=== PATIENT | female | born 1940 | race Caucasian/White ===

== ENCOUNTER 2016-06-05 08:45 | Day surgery (SDC) | payer MEDICARE, BC ==
[~2016-06-05 08:45] MED LIST: RINGERS SOLUTION,LACTATED 1,000 ML IV PRN
--- OUTSIDE RECORDS SUMMARY | 2016-06-05 08:49 | XMS REPORT | Continuity of Care Document ---
:1940 Author Organization [facility] ([facility]) Address [place] [address] Phone [phone] Care Team Providers Name Role Phone Amy Dahl Primary Care Provider [phone] Source Comments This disclosure is being made pursuant to the Care Everywhere program, applicable federal and state laws, and may not contain all informaitonavailable regarding this patient.[facility] ([facility]) Active Allergies and Adverse Reactions Allergen Noted Date Severity Reactions Comments Benzonatate 01/26/2011 Unknown Diclofenac 10/17/2015 Unknown Current Medications Prescription Sig. Disp. Refills Start Date End Date Status enalapril 10 mg tablet Take 5 mg by mouth Active daily. levothyroxine 25 mcg Take 12.5 mcg by Active tablet mouth every morning before breakfast. alendronate 70 mg tablet take 1 tablet 04/05/2012 Active (70MG) by oral route every week in the morning, at least 30 min before first food, beverage, or medication of day fluticasone 50 spray 1 spray by 05/31/2014 Active mcg/Actuation nasal spray intranasal route every day in each nostril glucosamine-chondroitin take 2 tablets 01/17/2009 Active complex 500-400 mg per daily capsule carvedilol 25 mg tablet Take 25 mg by mouth 1 03/26/2015 Active 2 times daily. omeprazole 20 mg enteric Take 20 mg by mouth 0 02/25/2015 Active coated capsule daily. albuterol 90 Use 2 Puffs by Active mcg/Actuation inhaler inhalation every 6 hours as needed. fluticasone-vilanterol Use 1 Puff by Active (BREO ELLIPTA) 100-25 inhalation daily. mcg/dose inhaler multivitamin tablet Take 1 tablet by Active mouth daily. magnesium oxide 250 mg Take 250 mg by Active tablet mouth daily. folic acid 400 mcg tablet Take 0.8 mg by Active mouth daily. aspirin 81 mg EC tablet Take 1 tablet (81 11 10/17/2015 Active mg total) by mouth daily. ferrous sulfate PO Active cholecalciferol (VITAMIN Take 1,000 Units by Active D3) 1,000 unit capsule mouth daily. cyanocobalamin (VITAMIN Take 500 mcg by Active B-12) 500 mcg tablet mouth daily. Active Problems Problem Noted Date Subconjunctival bleed 01/28/2011 Contusion of periorbital region, right 01/28/2011 Hypertension Dilated idiopathic cardiomyopathy Overview: Formatting of this note may be different from the original. 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 Deutsch. Normal coronary angiography. Normal LV function.) - 11/19/2003 ECHO/MUGA: Echo (LV is normal size and normal systolic function. There are no significant valvular lesions.) - 11/18/2007 Echo (EF.50, LVE is mild. LVEF mildly reduced at 40%-50%. No significant valve lesions.) - 04/05/2007 Echo (Left ventricular systolic function is normal. No significant valve disease. ) - 01/17/2009 STRESS TESTS: Pers MPI (No reversible ischemia. LVEF is 45%.) - 02/23/2007 MPI (EF 0.64, No evidence of ischemia or infarct) - 04/26/2012 Hypercholesterolemia Most Recent Encounters Date Type Specialty Providers Description 04/21/2016 Office Visit Heart and Vascular Mary Jacob MD Dx: Dilated idiopathic cardiomyopathy (Primary Dx) Immunizations Name Dates Previously Given Next Due Tdap 01/26/2011 Social History Tobacco Use Types Packs/Day Years Used Date Never Smoker Alcohol Use Drinks/Week oz/Week Comments No Last Filed Vital Signs Vital Sign Reading Time Taken Blood Pressure 112/60 04/21/2016 12:44 PM LOGISTICAL ENGINEER Pulse 64 04/21/2016 12:44 PM LOGISTICAL ENGINEER Temperature 35.7 C (96.3 F) 01/28/2011 2:30 PM LOGISTICAL ENGINEER Respiratory Rate 18 01/28/2011 2:30 PM LOGISTICAL ENGINEER Height 1.6 m (5' 3") 04/21/2016 12:44 PM LOGISTICAL ENGINEER Weight 73.483 kg (162 lb) 04/21/2016 12:44 PM LOGISTICAL ENGINEER Body Mass Index 28.7 04/21/2016 12:44 PM LOGISTICAL ENGINEER Oxygen Saturation 98% 01/28/2011 2:30 PM LOGISTICAL ENGINEER Plan of Care Date Type Specialty Providers Description 04/29/2017 Appointment Heart and Vascular CecilMary MD Chief Comp: Patient [address] [place] [address] Visit [phone] (Fax) Health Maintenance Due Date Last Done Comments Hepatitis B Vaccine (1 of 3 - Primary Series) 1940 Lipid Disorder Screening 1956 Mammogram 1978 Colonoscopy 03/27/1988 Zoster Vaccine 1998 Osteoporosis Screening (DXA Bone Density) 2003 Pneumococcal Vaccine (1 of 2 - PCV13) 2003 Influenza Vaccine: Seasonal (#1) 09/30/2015 Td Vaccine 01/26/2021 01/26/2011 Tdap Vaccine Completed 01/26/2011 Results from Last 3 Months Not on file
[2016-06-05] MEDS ORDERED: BUPIVACAINE HCL/EPINEPHRINE 50 ML VIAL IJ ONE (11:35)
[2016-06-05] MEDS ORDERED: ACETAMINOPHEN 500 MG TABLET PO PRN (12:17)
--- NOTE | 2016-06-05 13:16 | OR ---
Operative Report - Dictated Report Narrative: Operative report: 06/05/16 Preoperative diagnosis: postmenopausal bleeding, thickened endometrial stripe Postoperative diagnosis: Same Procedure: Hysteroscopy, D&C Surgeon: Heather Berrios D.O. Microfabrication Engineer Manager: OR staff Anesthesia: Local and sedation IV fluids: 300 Milliliters EBL: min Milliliters Urine output: Not applicable Findings: thickened lining, frondy tissue projections into the uterine cavity with areas of small white flecks, and an area of pink fluffy vascular thickened tissue Drains: None Pathology: Endometrial curettings Complications: None Condition: Stable The patient was taken to the operating room. Anesthesia was found to be adequate. The patient was prepped and draped in the normal sterile fashion in the dorsal lithotomy position. A sterile speculum was then inserted into the vagina. The anterior lip of the cervix was then grasped with a single-tooth tenaculum. Local anesthetic was then injected in the cervix. The hysteroscope was then inserted into the cervix. Hydrodistention was then used to enter into the uterine cavity. The cavity was then surveyed and findings were as above. The hysteroscope was then removed. The cervix was then sequentially dilated. A sharp curettage was then performed until the cry of the uterus was noted. Minimal bleeding was then noted from the cervix. Hysteroscopy was then performed and adequate curettage was noted throughout the entire cavity although difficult to see due to copious amounts of fluffy tissue. The hysteroscope was then removed. The tenaculum was then removed. Hemostasis was noted. The speculum was then removed. All sponge lap and needle counts were correct 2. The patient was taken to the recovery room in stable condition.
[2016-06-05 13:32] VITALS: BP 156/75
== END 2016-06-05 08:46 | disposition home or self-care (01) ==
LOC: AMB 08:45
PROVIDERS: ATTEND Obstetrics & Gynecology Gynecologic Oncology
PROC: 0UDB8ZX Extraction of Endometrium, Via Natural or Artificial Opening Endoscopic, Diagnostic (ICD-10-PCS; principal; 2016-06-05 10:00)
DX: C54.1 Malignant neoplasm of endometrium (principal); I10 Essential (primary) hypertension; E78.5 Hyperlipidemia, unspecified; J45.909 Unspecified asthma, uncomplicated; F41.9 Anxiety disorder, unspecified; Z68.28 Body mass index [BMI] 28.0-28.9, adult

== ENCOUNTER 2016-06-10 02:43 | Emergency (ER) | payer MEDICARE, BC ==
--- OUTSIDE RECORDS SUMMARY | 2016-06-10 02:58 | XMS REPORT | Continuity of Care Document ---
:1940 Author Organization [facility] ([facility]) Address [place] [address] Phone [phone] Care Team Providers Name Role Phone Amy Dahl Primary Care Provider [phone] Source Comments This disclosure is being made pursuant to the Care Everywhere program, applicable federal and state laws, and may not contain all informaitonavailable regarding this patient.[facility] ([facility]) Active Allergies and Adverse Reactions Allergen Noted [...] be different from the original. 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 Deutsch. Normal coronary angiography. [...] Taken Blood Pressure 112/60 04/21/2016 12:44 PM STEAM BOX HAND Pulse 64 04/21/2016 12:44 PM STEAM BOX HAND Temperature 35.7 C (96.3 F) 01/28/2011 2:30 PM STEAM BOX HAND Respiratory Rate 18 01/28/2011 2:30 PM STEAM BOX HAND Height 1.6 m (5' 3") 04/21/2016 12:44 PM STEAM BOX HAND Weight 73.483 kg (162 lb) 04/21/2016 12:44 PM STEAM BOX HAND Body Mass Index 28.7 04/21/2016 12:44 PM STEAM BOX HAND Oxygen Saturation 98% 01/28/2011 2:30 PM STEAM BOX HAND Plan of Care Date Type Specialty Providers Description 04/29/2017 Appointment Heart and Vascular CecilMary MD Chief Comp: Patient [address] [place] [address] Visit [phone] (Fax) Health Maintenance Due Date Last Done [...]
--- NOTE | 2016-06-10 03:26 | ERNOTE ---
Medical Problem HPI - General Chief Complaint: Screening, Blood Pressure Time Seen by Provider: 06/10/16 03:04 Source: patient Exam Limitations: no limitations - Immun/Allergies/Home Medications Immunizations: IMMUNIZATION HX Immunizations Up to Date Yes History of Influenza Vaccine Yes Hx Pneumococcal Vaccination Yes Allergies/Adverse Reactions: Allergies benzonatate [From Tessalon] Adverse Reaction (Mild, Verified 06/05/16 09:36) GI UPSET diclofenac Adverse Reaction (Mild, Verified 06/05/16 09:36) GI UPSET ibuprofen [From Motrin] Adverse Reaction (Mild, Verified 06/05/16 09:36) GI UPSET Home Medications: HOME MEDICATIONS Albuterol Sulfate 2.5 mg IH QID 03/11/15 [Last Taken Unknown] Alendronate Sodium [Fosamax] 70 mg PO Q7D 03/11/15 [Last Taken Unknown] Carvedilol [Coreg] 25 mg PO BID 03/11/15 [Last Taken Unknown] Enalapril Maleate [Vasotec] 10 mg PO BID 03/11/15 [Last Taken 06/05/16] Levothyroxine Sodium [Synthroid] 12.5 mcg PO DAILY 03/11/15 [Last Taken Unknown] Omeprazole [Prilosec] 40 mg PO DAILY 03/11/15 [Last Taken Unknown] Sod Chlor,Bicarb/Squeez Bottle [Neilmed Sinus Rinse Comp Kit] 1 each NS DAILY [Last Taken Unknown] Acetaminophen [Tylenol] 650 mg PO HS 06/05/16 [Last Taken Unknown] Calcium Citrate 500 mg PO DAILY 06/05/16 [Last Taken Unknown] Cholecalciferol (Vitamin D3) [Vitamin D3] 1,000 unit PO DAILY 06/05/16 [Last Taken Unknown] Cyanocobalamin/Folic Acid [Foltrate Tablet] 1 each PO DAILY 06/05/16 [Last Taken Unknown] Ferrous Sulfate [Iron] 325 mg PO DAILY 06/05/16 [Last Taken Unknown] Fluticasone/Vilanterol [Breo Ellipta 200-25 Mcg INH] 1 each IH DAILY 06/05/16 [ Last Taken Unknown] Folic Acid 0.8 mg PO DAILY 06/05/16 [Last Taken Unknown] Gluc Alegre/MSM/Magnesium/Vit C [Glucosamine Complex-MSM Cap] 1 each PO BID [Last Taken Unknown] Loratadine [Claritin] 10 mg PO DAILY 06/05/16 [Last Taken Unknown] Magnesium 250 mg PO DAILY 06/05/16 [Last Taken Unknown] Multivitamins [Multivitamin Paige] 1 cap PO DAILY 06/05/16 [Last Taken Unknown] Naproxen [Naprosyn] 250 mg PO BID 06/05/16 [Last Taken Unknown] - History of Present History Narrative: Pt states she has been feeling tingly all over. She states she can usually tell when her blood pressure is elevated. She found out that she has uterine cancer yesterday. She has not told any of her family about this. Recently had her enalapril increased from 10mg daily to 10mg BID. Timing: constant Severity: moderate Review of Systems - Review of Systems Constitutional: Absent: recent illness, weakness, fatigue EYE: Present: no symptoms reported ENT: Present: no symptoms reported Respiratory: Present: shortness of breath - on occasion due to her asthma but nothing unusual Cardiology: Absent: chest pain Gastrointestinal/Abdominal: Absent: nausea, vomiting Genitourinary: Present: no symptoms reported Musculoskeletal: Present: back pain - that is chronic Skin: Absent: rash, lesions Neurological: Present: no symptoms reported Endocrine: Present: no symptoms reported Hematologic/Lymphatic: Present: no symptoms reported Psych: Present: no symptoms reported - Patient's Past Medical History Patient History - Medical: Arthritis, GERD, Hypothyroidism Patient History - Cardiac/Respiratory: Asthma, Cardiomyopathy, Hypertension Patient History - Cancer: Other - uterine Patient History - Surgical Procedures: Appendectomy, Cataracts, Colon Resection , Colonoscopy, Total Knee Replacement, T & A, Other, Urology Patient History - Other: None - Family History Mother Family History - Medical: , Alzheimer's Disease, Osteoarthritis Family History - Cardiac/Respiratory: Hypertension Family History - Cancer: Melanoma Father Family History - Medical: , No pertinent hx, Other Family History - Cardiac/Respiratory: Hypertension Family History - Cancer: Myeloma, Other - Social History Living Situations: alone Abuse History: No History of abuse Psych History: No pertinent hx Smoking Status: Never smoker Alcohol Use: none Drug Use: none - Immunizations Immunizations Up to Date: Yes Hx Pneumococcal Vaccination: Yes History of Influenza Vaccine: Yes Physical Exam - Physical Exam General Appearance: Present: wd/wn, alert, no apparent distress Eye Exam: Normal inspection: bilateral, PERRL: bilateral, EOMI: bilateral Ears, Nose, Throat: Present: normal ENT inspection Neck: Present: normal inspection, nontender Respiratory: Present: no respiratory distress, normal breath sounds, no accessory muscle use, lungs clear Cardiovascular/Chest: Present: regular rate, rhythm, no murmur, normal peripheral pulses Gastrointestinal/Abdominal: Present: normal bowel sounds, nontender, nondistended, soft Back Exam: Present: normal inspection, normal range of motion Extremity Exam: Present: normal inspection Neurological Exam: Present: alert, oriented, normal mood/affect Skin Exam: Present: normal color, warm/dry ED Progress - Results and Orders Patient's Lab Results:: I have reviewed the patient's lab results. Results and Orders: Laboratory Tests 06/10/16 06/10/16 03:45 03:45 WBC 6.1 Hgb 13.2 Hct 40.0 Plt Count 209 Sodium 140 Potassium 3.6 Chloride 104 Carbon Dioxide 27.0 Anion Gap 12.6 BUN 22 D Creatinine 0.78 Est GFR (Non-Af Amer) 76 Random Glucose 94 Calcium 8.9 Total Bilirubin 0.5 AST 22 ALT 22 Alkaline Phosphatase 51 Troponin I Less than 0.017 Total Protein 7.6 Albumin 3.8 - Vital Signs Patient's Vital Signs:: I have reviewed the patient's vital signs. Vital Signs: Vital Signs 06/10/16 02:50 Temperature 36.5 C Pulse Rate 70 Respiratory 14 Rate Blood Pressure 193/115 O2 Sat by Pulse 99 Oximetry - EKG EKG: LVH, unchanged from - 03/11/15, other - left anterior facicular block. Probable old ND. EKG read: Interp. by me - Progress/Reassessment Chief Complaint: Screening, Blood Pressure Progress:: Improved Progress Note-Subjective: 06/10/16 03:57 blood pressure down to 167/92 without treatment Departure - Departure Clinical Impression: Hypertension Qualifiers: Hypertension type: essential hypertension Qualified Code(s): I10 - Essential ( primary) hypertension Condition: Good Instructions: Hypertension, [id number] Additional Instructions: continue to take your medicines as prescribed. See your regular doctor if not continuing to improve
[2016-06-10 03:49] LABS: Hemoglobin 13.2 gm/dL (12.5-16.0); Mean Cell Volume 91.7 fl (78-100); Mean Corpuscular Hemoglobin 30.3 pg (27-31); Mean Platelet Volume 10.3 fl (6.0-9.5); Neutrophil # 2.4 K/mm3 (1.3-6.0); Neutrophil % 38.6 % (42-75.0); Platelet Count 209 K/mm3 (150-450); Red Blood Count 4.36 M/mm3 (4.2-5.4); Red Cell Distribution Width 12.2 % (11.5-14.0); White Blood Count 6.1 K/mm3 (4.0-10.5)
[2016-06-10 04:04] LABS: ALT 22 U/L (19-67); AST 22 U/L (0-48); Albumin * 3.8 gm/dl (3.4-5.0); Alkaline Phosphatase * 51 U/L (50-170); Anion Gap 12.6 mmol/L (6.8-13.8); BUN/Creatinine Ratio 28.2 (9.0-21.6); Bilirubin, Total 0.5 mg/dL (0.0-1.1); Blood Urea Nitrogen 22 mg/dL (3-23); Ca. Corrected For Albumin 8.7 mg/dL (8.4-10.2); Calcium * 8.9 mg/dL (7.9-10.9); Chloride 104 mmol/L (97-106); Glucose * 94 mg/dL (70-110); Potassium 3.6 mmol/L (3.4-4.6); Sodium 140 mmol/L (132-142); Total Protein 7.6 gm/dL (6.2-8.2); Troponin I Less than 0.017 ng/ml (0.00-0.10)
[2016-06-10 04:26] VITALS: BP 163/86
== END 2016-06-10 04:24 | disposition home or self-care (01) ==
LOC: ER 02:43
DX: I10 Essential (primary) hypertension (principal); K21.9 Gastro-esophageal reflux disease without esophagitis; E03.9 Hypothyroidism, unspecified; J45.909 Unspecified asthma, uncomplicated; C54.1 Malignant neoplasm of endometrium

== ENCOUNTER 2016-08-31 23:31 | Emergency (ER) | payer MEDICARE, BC ==
--- NOTE | 2016-08-31 23:53 | ERNOTE ---
Medical Problem HPI - General Chief Complaint: General Assessment Time Seen by Provider: 08/31/16 23:50 Source: patient Exam Limitations: no limitations - Immun/Allergies/Home Medications Immunizations: IMMUNIZATION HX Immunizations Up to Date Yes History of Influenza Vaccine Yes Hx Pneumococcal Vaccination Yes Allergies/Adverse Reactions: Allergies benzonatate [From Tessalon] Adverse Reaction (Mild, Verified 06/05/16 09:36) GI UPSET diclofenac Adverse Reaction (Mild, Verified 06/05/16 09:36) GI UPSET ibuprofen [From Motrin] Adverse Reaction (Mild, Verified 06/05/16 09:36) GI UPSET Home Medications: HOME MEDICATIONS Albuterol Sulfate 2.5 mg IH QID 03/11/15 [Last Taken Unknown] Alendronate Sodium [Fosamax] 70 mg PO Q7D 03/11/15 [Last Taken Unknown] Carvedilol [Coreg] 25 mg PO BID 03/11/15 [Last Taken Unknown] Levothyroxine Sodium [Synthroid] 12.5 mcg PO DAILY 03/11/15 [Last Taken Unknown] Omeprazole [Prilosec] 40 mg PO DAILY PRN 03/11/15 [Last Taken Unknown] Sod Chlor,Bicarb/Squeez Bottle [Neilmed Sinus Rinse Comp Kit] 1 each NS DAILY [Last Taken Unknown] Acetaminophen [Tylenol] 650 mg PO HS 06/05/16 [Last Taken Unknown] Calcium Citrate 500 mg PO DAILY 06/05/16 [Last Taken Unknown] Cholecalciferol (Vitamin D3) [Vitamin D3] 1,000 unit PO DAILY 06/05/16 [Last Taken Unknown] Cyanocobalamin/Folic Acid [Foltrate Tablet] 1 each PO DAILY 06/05/16 [Last Taken Unknown] Ferrous Sulfate [Iron] 325 mg PO DAILY 06/05/16 [Last Taken Unknown] Fluticasone/Vilanterol [Breo Ellipta 200-25 Mcg INH] 1 each IH DAILY 06/05/16 [ Last Taken Unknown] Folic Acid 0.8 mg PO DAILY 06/05/16 [Last Taken Unknown] Gluc Alegre/MSM/Magnesium/Vit C [Glucosamine Complex-MSM Cap] 1 each PO BID [Last Taken Unknown] Loratadine [Claritin] 10 mg PO DAILY 06/05/16 [Last Taken Unknown] Magnesium 250 mg PO DAILY 06/05/16 [Last Taken Unknown] Multivitamins [Multivitamin Paige] 1 cap PO DAILY 06/05/16 [Last Taken Unknown] - History of Present History Narrative: Pt had second of three planned intravaginal pelvic radiation treatments today. She now has swelling of her left leg and some shooting pains in her pelvis. She spoke with her oncologist and was referred to ED for further workup Timing: constant, getting worse Severity: moderate Review of Systems - Review of Systems Constitutional: Absent: recent illness, fever EYE: Present: no symptoms reported ENT: Present: no symptoms reported Respiratory: Absent: shortness of breath Cardiology: Present: chest pain, palpitations Gastrointestinal/Abdominal: Present: no symptoms reported Genitourinary: Present: no symptoms reported Musculoskeletal: Present: no symptoms reported Skin: Present: no symptoms reported Neurological: Present: no symptoms reported Endocrine: Present: no symptoms reported Hematologic/Lymphatic: Present: no symptoms reported Psych: Present: no symptoms reported - Patient's Past Medical History Patient History - Medical: Arthritis, GERD, Hypothyroidism Patient History - Cardiac/Respiratory: Asthma, Cardiomyopathy, Hypertension Patient History - Cancer: Other Patient History - Surgical Procedures: Appendectomy, Cataracts, Colon Resection , Colonoscopy, Hysterectomy, Total Knee Replacement, T & A, Other, Urology Patient History - Other: None LMP (females 10-50): Menopausal - Family History Mother Family History - Medical: , Alzheimer's Disease, Osteoarthritis Family History - Cardiac/Respiratory: Hypertension Family History - Cancer: Melanoma Father Family History - Medical: , No pertinent hx, Other Family History - Cardiac/Respiratory: Hypertension Family History - Cancer: Myeloma, Other - Social History Living Situations: home Abuse History: No History of abuse Psych History: No pertinent hx Smoking Status: Never smoker Have you smoked in the past 12 months: No Do you dip or chew tobacco: No Alcohol Use: none Drug Use: none - Immunizations Immunizations Up to Date: Yes Hx Pneumococcal Vaccination: Yes History of Influenza Vaccine: Yes Physical Exam - Physical Exam General Appearance: Present: wd/wn, alert, no apparent distress Neck: Present: normal inspection, nontender Respiratory: Present: no respiratory distress, no accessory muscle use, lungs clear Cardiovascular/Chest: Present: regular rate, rhythm, no murmur Gastrointestinal/Abdominal: Present: tenderness - suprapubic, mild. Absent: guarding, rebound, mass Back Exam: Present: normal inspection, normal range of motion Extremity Exam: Present: normal except - - left leg sightly larger than the right, no specific cord palpated. moderate varicosities bilateral Neurological Exam: Present: alert, oriented, normal mood/affect Skin Exam: Present: normal color, warm/dry Lymphatic Exam: Present: no adenopathy ED Progress - Results and Orders Patient's Lab Results:: I have reviewed the patient's lab results. Results and Orders: Laboratory Tests 09/01/16 09/01/16 00:15 00:15 WBC 5.5 Hgb 11.4 L Hct 34.1 L Plt Count 201 D-Dimer 0.94 H - Vital Signs Patient's Vital Signs:: I have reviewed the patient's vital signs. Vital Signs: Vital Signs 08/31/16 23:34 Temperature 37.4 C Pulse Rate 66 Respiratory 16 Rate Blood Pressure 193/94 O2 Sat by Pulse 98 Oximetry - CT/Ultrasound CT/Ultrasound Narrative: US venous doppler left leg: No evidence of DVT. - Progress/Reassessment Chief Complaint: General Assessment Progress Note-Subjective: 09/01/16 03:08 Disucussed U/S results with the patient. She states that since she has been here the leg has become less tight than it was earlier. Encouraged patient to follow up with her oncologist or PCP this week and to call them or return to the ED if she is worsening Departure - Departure Clinical Impression: Swelling of left lower extremity Disposition: Home Follow Up Needed Condition: Good Instructions: Edema, [id number] Additional Instructions: Elevate your leg 20-30 minutes twice a day. See your regular doctor if your leg is not improving Referrals: Amy Dahl, ONCOLOGY SOCIAL WORK [Primary Care Provider] -
[2016-09-01 00:23] LABS: Hematocrit 34.1 % (37.0-47.0); Hemoglobin 11.4 gm/dL (12.5-16.0); Mean Cell Volume 91.2 fl (78-100); Mean Corpuscular Hemoglobin 30.5 pg (27-31); Mean Corpuscular Hgb Conc 33.4 g/dl (32-36); Mean Platelet Volume 9.9 fl (6.0-9.5); Neutrophil # 2.5 K/mm3 (1.3-6.0); Neutrophil % 45.8 % (42-75.0); Platelet Count 201 K/mm3 (150-450); Red Blood Count 3.74 M/mm3 (4.2-5.4); White Blood Count 5.5 K/mm3 (4.0-10.5)
[2016-09-01 03:21] VITALS: BP 175/95
== END 2016-09-01 03:17 | disposition home or self-care (01) ==
LOC: ER 23:31
DX: R22.42 Localized swelling, mass and lump, left lower limb (principal); E03.9 Hypothyroidism, unspecified; K21.9 Gastro-esophageal reflux disease without esophagitis; J45.909 Unspecified asthma, uncomplicated; I10 Essential (primary) hypertension; I42.9 Cardiomyopathy, unspecified

== ENCOUNTER 2017-01-11 02:09 | Emergency (ER) | payer MEDICARE, BC ==
[2017-01-11] MEDS ORDERED: DIPHTH,PERTUSS(ACELL),TET VAC 0.5 ML VIAL IM ONE ×2 (02:29→03:48)
--- NOTE | 2017-01-11 04:01 | ERNOTE ---
Upper Extremity HPI - Narrative Date of Service: 01/11/17 - General Time Seen by Provider: 01/11/17 02:17 Source: patient Exam Limitations: no limitations - Immun/Allergies/Home Medications Immunizations: IMMUNIZATION HX Immunizations Up to Date No History of Influenza Vaccine Yes Hx Pneumococcal Vaccination Yes Allergies/Adverse Reactions: Allergies Allergy/AdvReac Type Severity Reaction Status Date / Time benzonatate [From Tessalon] AdvReac Mild GI UPSET Verified 06/05/16 09:36 diclofenac AdvReac Mild GI UPSET Verified 06/05/16 09:36 ibuprofen [From Motrin] AdvReac Mild GI UPSET Verified 06/05/16 09:36 Home Medications: HOME MEDICATIONS Albuterol Sulfate 2.5 mg IH QID 03/11/15 [Last Taken Unknown] Alendronate Sodium [Fosamax] 70 mg PO Q7D 03/11/15 [Last Taken Unknown] Carvedilol [Coreg] 25 mg PO BID 03/11/15 [Last Taken Unknown] Levothyroxine Sodium [Synthroid] 12.5 mcg PO DAILY 03/11/15 [Last Taken Unknown] Omeprazole [Prilosec] 40 mg PO DAILY PRN 03/11/15 [Last Taken Unknown] Sod Chlor,Bicarb/Squeez Bottle [Neilmed Sinus Rinse Comp Kit] 1 each NS DAILY [Last Taken Unknown] Acetaminophen [Tylenol] 650 mg PO HS 06/05/16 [Last Taken Unknown] Calcium Citrate 500 mg PO DAILY 06/05/16 [Last Taken Unknown] Cholecalciferol (Vitamin D3) [Vitamin D3] 1,000 unit PO DAILY 06/05/16 [Last Taken Unknown] Cyanocobalamin/Folic Acid [Foltrate Tablet] 1 each PO DAILY 06/05/16 [Last Taken Unknown] Ferrous Sulfate [Iron] 325 mg PO DAILY 06/05/16 [Last Taken Unknown] Fluticasone/Vilanterol [Breo Ellipta 200-25 Mcg INH] 1 each IH DAILY 06/05/16 [ Last Taken Unknown] Folic Acid 0.8 mg PO DAILY 06/05/16 [Last Taken Unknown] Gluc Alegre/MSM/Magnesium/Vit C [Glucosamine Complex-MSM Cap] 1 each PO BID [Last Taken Unknown] Loratadine [Claritin] 10 mg PO DAILY 06/05/16 [Last Taken Unknown] Magnesium 250 mg PO DAILY 06/05/16 [Last Taken Unknown] Multivitamins [Multivitamin Paige] 1 cap PO DAILY 06/05/16 [Last Taken Unknown] Aspirin [Aspirin Chewable] 81 mg PO DAILY 01/11/17 [Last Taken Unknown] Cephalexin Monohydrate [Keflex] 250 mg PO QID #28 capsule 01/11/17 [Last Taken Unknown] - History of Present Illness Narrative: Patient tripped and fell prior to presentation to the emergency room onto her right hand and also in the process she sustained a laceration to the left ring finger. Patient also states that she hit the bridge of her nose on the ground. She did not lose consciousness. She did not hit any other part of her head. Patient has perfect recollection of all the events. She does take an aspirin daily. She is on no other anticoagulants. Review of Systems - Review of Systems Constitutional: Present: no symptoms reported EYE: Present: no symptoms reported ENT: Present: no symptoms reported Respiratory: Present: no symptoms reported Cardiology: Present: no symptoms reported Gastrointestinal/Abdominal: Present: no symptoms reported Genitourinary: Present: no symptoms reported Musculoskeletal: Present: See HPI - patient has pain in the right hand and also in the left ring finger and she also has discomfort in the nasal area. - Patient's Past Medical History Patient History - Medical: Arthritis, GERD, Hypothyroidism Patient History - Cardiac/Respiratory: Asthma, Cardiomyopathy, Hypertension Patient History - Cancer: Other Patient History - Surgical Procedures: Appendectomy, Cataracts, Colon Resection , Colonoscopy, Hysterectomy, Total Knee Replacement, T & A, Other, Urology Patient History - Other: None - Family History Mother Family History - Medical: , Alzheimer's Disease, Osteoarthritis Family History - Cardiac/Respiratory: Hypertension Family History - Cancer: Melanoma Father Family History - Medical: , No pertinent hx, Other Family History - Cardiac/Respiratory: Hypertension Family History - Cancer: Myeloma, Other - Social History Living Situations: alone Abuse History: No History of abuse Psych History: No pertinent hx Smoking Status: Never smoker Have you smoked in the past 12 months: No Do you dip or chew tobacco: No Patient requests Smoking Cessation Consult: No Initiate information on Smoking Cessation: No Alcohol Use: none Drug Use: none - Immunizations Immunizations Up to Date: No Hx Pneumococcal Vaccination: Yes History of Influenza Vaccine: Yes Physical Exam - Physical Exam General Appearance: Present: wd/wn, alert, no apparent distress Head Exam: Present: other - there is a small superficial abrasion on the central forehead additionally there is a small abrasion on the bridge of the nose there is swelling of the nasal region bilaterally just underneath both medial canthi. Eye Exam: Normal inspection: bilateral, PERRL: bilateral, EOMI: bilateral Ears, Nose, Throat: Present: normal ENT inspection, normal pharynx - no hemotympanum noted Neck: Present: normal inspection, nontender, supple, full range of motion Respiratory: Present: no respiratory distress, normal breath sounds, no accessory muscle use, chest nontender, lungs clear Cardiovascular/Chest: Present: regular rate, rhythm, no murmur, normal peripheral pulses Extremity Exam: Present: other - patient has pain in her right hand in the little finger and her ring finger and middle digit. Patient additionally has a 170 laceration to the volar aspect of the left middle finger. He shouldn't is neurovascularly intact distal to all these injuries. ED Progress - Vital Signs Patient's Vital Signs:: I have reviewed the patient's vital signs. Vital Signs: Vital Signs 01/11/17 02:14 Temperature 36.1 C L Pulse Rate 74 Respiratory 18 Rate Blood Pressure 174/95 O2 Sat by Pulse 99 Oximetry - X-Ray X-Ray #1 X-Ray: hand - CT/Ultrasound CT/Ultrasound Narrative: Axilla facial CT scan was read by a radiologist - Progress/Reassessment Chief Complaint: Upper Extremity Injury/Problem Plan - Plan Plan: This patient has a laceration on her left middle digit volar aspect and proximal region of the fifth finger. The lacerations approximately 1 cm and superficial but there is a slow ooze. This examiner anesthetized the digit by local infiltration of 1 mL of lidocaine and LP injected at either border within the incision was cleaned. Ongoing that 3 sutures of 5-0 Prolene variety was placed for closure in sterile format. Patient tolerated the procedure very well and refused pain medication. Additionally this patient's x-ray of her right hand reveals proximal phalanx fracture of middle digit ring digit and pinky digit all involving articular surfaces, all comminuted, with minimal posterior displacement noted as read by the radiologist. This case was discussed with Dom Tello at this time we will go ahead and place the patient in a volar and ulnar gutter splint for the right hand and she is to contact hour or so clinic at 9 AM this morning for follow-up. 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 Additionally this patient's CT scan of her maxillofacial bones reveals age indeterminate minimally impacted right nasal bone fracture punctate ossific fragment adjacent to maxillary spine could represent a very small evulsion fracture age indeterminate. In light of these findings this examiner well diagnosed the patient with a nasal fracture she does have an abrasion on the nasal bridge therefore by the strict definition this is an open fracture she will be placed on antibiotics. Dr. León at [facility] was called at this time and he agreed to see the patient on that is in 4 days in his clinic right here at [address] [place] [address]. Departure Clinical Impression: Laceration of left middle finger Qualifiers: Encounter type: initial encounter Damage to nail status: without damage Foreign body presence: without foreign body Qualified Code(s): S61.213A - Laceration without foreign body of left middle finger without damage to nail, initial encounter Nasal bone fracture Qualifiers: Encounter type: initial encounter Fracture type: open Qualified Code(s): S02.2XXB - Fracture of nasal bones, initial encounter for open fracture Fracture phalanges, hand Qualifiers: Encounter type: initial encounter Fracture type: closed Qualified Code(s): S62.609A - Fracture of unspecified phalanx of unspecified finger, initial encounter for closed fracture - Departure Disposition: Home self-care Condition: Good Instructions: Finger Fracture, [id number], Nasal Fracture, [id number], Laceration Care, Adult, [id number] Additional Instructions: Please follow up with or so later on today. Please follow-up with the primary care doctor for wound check in 48 hours for your finger laceration at that time they will inform you when to come back for removal of sutures. Also please follow-up with Dr. León our ENT specialist, here at this facility on . He has been called and he is aware of your nasal bone fracture. Referrals: Amy Dahl, [employer] [Primary Care Provider] - Prescriptions: Cephalexin Monohydrate [Keflex] 250 mg PO QID #28 capsule
[2017-01-11] MEDS ORDERED: PROPOFOL 1,000 MG/100 ML PIGGYBACK IV PRN (04:09)
[2017-01-11] MEDS ORDERED: ceFAZolin SODIUM 1 GM in DEXTROSE 5 % IN WATER 100 ML IV ONE ×2 (04:23)
[2017-01-11] MEDS ORDERED: ACETAMINOPHEN 500 MG TABLET PO ONE (04:53)
[2017-01-11 05:41] VITALS: BP 172/78
== END 2017-01-11 05:38 | disposition home or self-care (01) ==
LOC: ER 02:09
PROC: 0HQGXZZ Repair Left Hand Skin, External Approach (ICD-10-PCS; principal; 2017-01-11)
PROC: 2W3CX1Z Immobilization of Right Lower Arm using Splint (ICD-10-PCS; 2017-01-11)
DX: S61.213A Laceration without foreign body of left middle finger without damage to nail, initial encounter (principal); S02.2XXB Fracture of nasal bones, initial encounter for open fracture; S62.609A Fracture of unspecified phalanx of unspecified finger, initial encounter for closed fracture; W19.XXXA Unspecified fall, initial encounter; M19.90 Unspecified osteoarthritis, unspecified site; K21.9 Gastro-esophageal reflux disease without esophagitis; E03.9 Hypothyroidism, unspecified; I10 Essential (primary) hypertension; Z23 Encounter for immunization

== ENCOUNTER 2018-09-02 16:07 | Inpatient (IN) ==
[2018-09-02] MEDS ORDERED: ONDANSETRON 4 MG TAB.RAPDIS PO ONE (16:50)
--- NOTE | 2018-09-02 16:50 | ERNOTE ---
Medical Problem HPI - Narrative Date of Service: 09/02/18 - General Chief Complaint: Nausea/Vomiting Time Seen by Provider: 09/02/18 16:44 Source: patient Exam Limitations: no limitations - Immun/Allergies/Home Medications Immunizations: IMMUNIZATION HX Immunizations Up to Date Yes History of Influenza Vaccine Yes Hx Pneumococcal Vaccination Yes Allergies/Adverse Reactions: Allergies benzonatate [From Tessalon] Adverse Reaction (Mild, Verified 09/02/18 16:19) GI UPSET diclofenac Adverse Reaction (Mild, Verified 09/02/18 16:19) GI UPSET ibuprofen [From Motrin] Adverse Reaction (Mild, Verified 09/02/18 16:19) GI UPSET Home Medications: HOME MEDICATIONS Albuterol Sulfate 2.5 mg IH QID 03/11/15 [Last Taken Unknown] Carvedilol [Coreg] 25 mg PO BID 03/11/15 [Last Taken Unknown] Levothyroxine Sodium [Synthroid] 12.5 mcg PO DAILY 03/11/15 [Last Taken Unknown] Acetaminophen [Tylenol] 650 mg PO HS 06/05/16 [Last Taken Unknown] Calcium Citrate 500 mg PO DAILY 06/05/16 [Last Taken Unknown] Cholecalciferol (Vitamin D3) [Vitamin D3] 1,000 unit PO DAILY 06/05/16 [Last Taken Unknown] Cyanocobalamin/Folic Acid [Foltrate Tablet] 1 each PO DAILY 06/05/16 [Last Taken Unknown] Ferrous Sulfate [Iron] 325 mg PO DAILY 06/05/16 [Last Taken Unknown] Folic Acid 0.8 mg PO DAILY 06/05/16 [Last Taken Unknown] Gluc Alegre/MSM/Magnesium/Vit C [Glucosamine Complex-MSM Cap] 1 each PO BID 06/05/16 [Last Taken Unknown] Loratadine [Claritin] 10 mg PO DAILY 06/05/16 [Last Taken Unknown] Magnesium 250 mg PO DAILY 06/05/16 [Last Taken Unknown] Multivitamins [Multivitamin Paige] 1 cap PO DAILY 06/05/16 [Last Taken Unknown] Aspirin [Aspirin Chewable] 81 mg PO DAILY 01/11/17 [Last Taken Unknown] HYDROcodone/ACETAMINOPHEN [Hydrocodon-Acetaminophen 5-325] 1 ea PO HS 09/02/18 [Last Taken Unknown] Meloxicam [Mobic] 15 mg PO BID 09/02/18 [Last Taken Unknown] Oxybutynin Chloride [Ditropan] 5 mg PO BID 09/02/18 [Last Taken Unknown] - Pain Score Pain Score #1 Pain Score: 6 - History of Present History Narrative: The patient is a 78 year old female who presents for nausea with vomiting which has been present since yesterday. There are associated symptoms of diffuse abdominal pain. The patient reports abdominal pain, 6/10. There are no alleviating factors. There are aggravating factors of oral intake. Previous treatments have included: Pepto-Bismol without improvement. The past medical history includes: asthma and hypothyroid. The social history is negative. The patient has had no ill contacts. Patient states she was using [place] for her back pain and became constipated, patient reports taking laxative with result of large BM yesterday and then onset of vomiting and pain. Review of Systems - Review of Systems Constitutional: Present: fatigue. Absent: fever EYE: Present: no symptoms reported ENT: Present: no symptoms reported. Absent: ear pain, nasal drainage, sore throat Respiratory: Present: shortness of breath. Absent: cough Cardiology: Present: no symptoms reported. Absent: chest pain Gastrointestinal/Abdominal: Present: nausea, vomiting, abdominal pain. Absent: diarrhea Genitourinary: Present: decreased urinary output. Absent: dysuria Musculoskeletal: Present: no symptoms reported Skin: Present: no symptoms reported. Absent: rash Neurological: Present: no symptoms reported Endocrine: Present: no symptoms reported All Other Systems: All systems neg except as marked Medical History (Updated 09/02/18 @ 21:03 by ) 3rd-5th R metatarsal fracture w/ pins Asthma Hypothyroid Left TKA 2003 Left hand fracture Right TKA 2009 Right carpal tunnel release Uterine cancer - w/ total hysterectomy Surgical History: Surgical History (Updated 09/02/18 @ 16:11 by Sid Alaniz RN) History of back surgery 06/2018 Status post reverse total arthroplasty of left shoulder Social History: Preferred Language Lao Do you have any anabaptism or Yes: ben bolt rastafari cultural preference? Smoking Status Never smoker Abuse History No History of abuse Psych History No pertinent hx Alcohol Use sober Drug Use none No Social History Section defined Physical Exam - Physical Exam General Appearance: Present: wd/wn, alert, moderate distress Head Exam: Present: normal inspection Eye Exam: Normal inspection: bilateral Neck: Present: normal inspection Respiratory: Present: no respiratory distress, normal breath sounds, no accessory muscle use, lungs clear Cardiovascular/Chest: Present: regular rate, rhythm, no murmur Gastrointestinal/Abdominal: Present: nontender, nondistended, soft, no organomegaly, abnormal bowel sounds - hyperactive Extremity Exam: Present: no edema Neurological Exam: Present: alert, oriented, normal mood/affect Skin Exam: Present: normal color, warm/dry Progress - Date and Time Seen: Date and Time: 09/02/18 21:00 Case discussed with , will insert NG. Case discussed with , will admit to inpatient due to small bowel obstruction. 09/02/18 21:20 Results were discussed with patient and verbalizes understanding of plan of care for admission with NG placement and NPO status. - Results and Orders Patient's Lab Results:: I have reviewed the patient's lab results. - Vital Signs Patient's Vital Signs:: I have reviewed the patient's vital signs. Vital Signs: Vital Signs 09/02/18 16:08 Temperature 36.6 C Pulse Rate 84 Respiratory Rate 14 Blood Pressure 146/92 H O2 Sat by Pulse Oximetry 95 - X-Ray X-Ray #1 X-Ray: abdomen Interpretation: Reviewed by me X-ray Comments: Dilated bowel loops with area of dilation to middle of abdomen with multiple air fluid levels. Reviewed with . X-Ray #2 X-Ray: abdomen Interpretation: Reviewed by wi X-ray Comments: End of NG in stomach. - CT/Ultrasound CT/Ultrasound Narrative: Interpretation by real radiology: Findings suggesting a small bowel obstruction, with multiple small bowel loops measuring up to 4.2 cm in caliber. A definite transition point is not visualized. Surgical consultation is advised. Apparent wall thickening involving a loop of mid small bowel. This may be due to under distention, as this loop of small bowel is not opacified with contrast. A follow-up abdominal x-ray can be considered, to see if contrast reaches the colon. Biliary ductal dilation is noted, for which correlation with liver function test it is advised. - Progress/Reassessment Chief Complaint: Nausea/Vomiting Progress:: Improved Departure Clinical Impression: Small bowel obstruction - Departure Disposition: Still a patient Condition: Fair
[2018-09-02 17:04] LABS: Hematocrit 40.9 % (37.0-47.0); Hemoglobin 13.6 gm/dL (12.5-16.0); Mean Cell Volume 94.7 fl (78-100); Mean Corpuscular Hemoglobin 31.5 pg (27-31); Mean Corpuscular Hgb Conc 33.3 g/dl (32-36); Mean Platelet Volume 10.2 fl (8-12.5); Neutrophil # 4.7 K/mm3 (1.3-6.0); Neutrophil % 71.1 % (42-75.0); Platelet Count 243 K/mm3 (150-450); Red Blood Count 4.32 M/mm3 (4.2-5.4); Red Cell Distribution Width 12.9 % (11.5-14.0); White Blood Count 6.6 K/mm3 (4.0-10.5)
[2018-09-02 17:17] LABS: Albumin * 3.9 gm/dl (3.4-5.0); Anion Gap 12.6 mmol/L (6.8-13.8); BUN/Creatinine Ratio 25.3 (9.0-21.6); Bilirubin, Total 0.9 mg/dL (0.0-1.1); Ca. Corrected For Albumin 9.6 mg/dL (8.4-10.2); Calcium * 9.8 mg/dL (7.9-10.9); Carbon Dioxide 28.2 mmol/L (24-32.6); Potassium 3.8 mmol/L (3.4-4.6); Total Protein 7.8 gm/dL (6.2-8.2)
[2018-09-02] MEDS ORDERED: DIATRIZOATE MEGLUMINE, SODIUM 30 ML BTL PO ONE (17:27)
[2018-09-02] MEDS ORDERED: MORPHINE SULFATE 2 MG/ML DISP.SYRIN IV ONE ×3 (17:36→20:49)
[2018-09-02 18:16] LABS: Urine Bilirubin Negative (NEGATIVE); Urine Blood Negative /ul (NEGATIVE); Urine Ketone Negative (NEGATIVE); Urine Nitrite Negative (NEGATIVE); Urine Protein 15 mg/dL (NEGATIVE); Urine Specific Gravity >=1.030 SP.GR. (1.005-1.010); Urine Urobilinogen Normal (NORMAL); Urine pH 5.5 pH (5.0-7.0)
[2018-09-02 18:27] LABS: Urine Appearance Slightly Cloudy (CLEAR); Urine Bacteria 2+; Urine Color Dark Yellow; Urine Hyaline Cast TRACE /LPF; Urine RBC None Seen /hpf (0-5); Urine WBC None Seen /hpf (0-5)
[2018-09-02] MEDS ORDERED: ONDANSETRON HCL/PF 2 MG/ML VIAL IV PRN (21:19)
[2018-09-02] MEDS: NORMAL SALINE 1,000 ML IV PRN (22:26)
[2018-09-02] MEDS: MORPHINE SULFATE 2 MG/ML DISP.SYRIN IV PRN (23:55)
[2018-09-03] MEDS: PHENOL 180 SPRAY BTL MM PRN ×4 (03:35→18:52)
[2018-09-03] MEDS: MORPHINE SULFATE 2 MG/ML DISP.SYRIN IV PRN (07:38)
[2018-09-03] MEDS: NORMAL SALINE 1,000 ML IV PRN ×2 (07:44→18:50)
--- NOTE | 2018-09-03 07:56 | CONS ---
- Reason for consultation (1) Small bowel obstruction Date of Service: 09/03/18 HPI - General Date of Service: 09/03/18 Source: patient Exam Limitations: no limitations - History of Present Illness Initial Comments: Gavi is a pleasant 78-year-old female who is admitted for a small bowel obstruction. She has had nausea and vomiting since yesterday. She is feeling better now that she is in the hospital. The NG tube was helped to relieve some of the pressure. She denies any flatus. She recently had back surgery. She took a laxative yesterday and had a large bowel movement yesterday. She has a history of a bowel obstruction when she was 28. She states she was very sick and had portion of her large bowel removed. She has a large midline incision. She is uncertain what caused her bowel obstruction at that time. She has not had a bowel obstruction since. Timing/Duration: 24 hours Severity: moderate Associated Symptoms: nausea, vomiting Allergies/Adverse Reactions: Allergies gabapentin Adverse Reaction (Intermediate, Verified 09/02/18 23:00) Muscle Pain benzonatate [From Tessalon] Adverse Reaction (Mild, Verified 09/02/18 16:19) GI UPSET diclofenac Adverse Reaction (Mild, Verified 09/02/18 16:19) GI UPSET ibuprofen [From Motrin] Adverse Reaction (Mild, Verified 09/02/18 16:19) GI UPSET Home Medications: Home Medications Medication Instructions Recorded Last Taken Albuterol Sulfate 2.5 mg IH QID PRN 03/11/15 Unknown Carvedilol [Coreg] 25 mg PO BID 03/11/15 09/02/18 08:00 Levothyroxine Sodium [Synthroid] 12.5 mcg PO DAILY 03/11/15 09/02/18 08:00 Acetaminophen [Tylenol] 650 mg PO HS PRN 06/05/16 Unknown Cholecalciferol (Vitamin D3) 1,000 unit PO DAILY 06/05/16 08/31/18 21:00 [Vitamin D3] Cyanocobalamin/Folic Acid 1 each PO DAILY 06/05/16 09/01/18 08:00 [Foltrate Tablet] Ferrous Sulfate [Iron] 325 mg PO DAILY 06/05/16 08/31/18 08:00 Folic Acid 0.8 mg PO DAILY 06/05/16 09/01/18 08:00 Gluc Alegre/MSM/Magnesium/Vit C 1 each PO BID 06/05/16 08/31/18 08:00 [Glucosamine Complex-MSM Cap] Loratadine [Claritin] 10 mg PO DAILY 06/05/16 09/02/18 08:00 Magnesium 250 mg PO DAILY 06/05/16 08/31/18 21:00 Multivitamins [Multivitamin Paige] 1 cap PO DAILY 06/05/16 09/01/18 08:00 Aspirin [Aspirin Chewable] 81 mg PO DAILY 01/11/17 09/02/18 08:00 Calcium Citrate/Vitamin D2 1 ea PO DAILY 09/02/18 08/31/18 21:00 [Edenilson-Citrate Plus Vitamin D Tab] HYDROcodone/ACETAMINOPHEN 1 ea PO HS 09/02/18 09/01/18 22:00 [Hydrocodon-Acetaminophen 5-325] Meloxicam [Mobic] 15 mg PO BID 09/02/18 09/01/18 08:00 Oxybutynin Chloride [Ditropan] 5 mg PO BID 09/02/18 09/01/18 08:00 Procedures Closed [endoscopic] biopsy of large intestine (06/02/06) Extraction of Endometrium, Via Natural or Artificial Opening Endoscopic, Diagnostic (06/05/16) Immobilization of Right Lower Arm using Splint (01/11/17) Injection of anesthetic into spinal canal for analgesia (01/03/13) Injection of other agent into spinal canal (01/03/13) Injection of steroid (01/03/13) Insertion of intraocular lens prosthesis at time of cataract extraction, one- stage (03/06/08) Phacoemulsification and aspiration of cataract (03/06/08) Repair Left Hand Skin, External Approach (01/11/17) Total knee replacement (11/27/03) Exploratory laparotomy with partial removal of large bowel Medications - Medications Current Medications: Current Medications Sodium Chloride (Sodium Chloride 0.9%) 1,000 mls @ 100 mls/hr IV .Q10H PRN PRN Reason: HYDRATION Stop: 10/02/18 21:19 Last Admin: 09/03/18 07:44 Dose: 100 mls/hr Documented by: Morphine Sulfate (Morphine Sulfate) 2 mg IV Q2H PRN PRN Reason: Pain Stop: 10/02/18 21:20 Last Admin: 09/03/18 07:38 Dose: 2 mg Documented by: Phenol/Menthol (Chloraseptic) 0 spray MM PRN PRN PRN Reason: Sore Throat Stop: 10/03/18 03:26 Last Admin: 09/03/18 07:36 Dose: 1 spray Documented by: Review of Systems - Review of Systems Generalized/Overall Review: Present: Malaise EENTM: Present: Throat Pain Respiratory: Present: No Symptoms Reported Cardiac: Present: No Symptoms Reported Abdominal: Present: Nausea, Vomiting, Abdominal Pain Genitourinary: Present: No Symptoms Reported Musculoskeletal: Present: Back Pain Neurological: Present: No Symptoms Reported Skin: Present: No Symptoms Reported Endocrine: Present: No Symptoms Reported Physical Examination - Exam Vital Signs: Vital Signs - Last Taken Temp 36.6 C 09/03/18 06:49 Pulse 56 L 09/03/18 06:49 Resp 18 09/03/18 06:49 BP 111/63 09/03/18 06:49 Pulse Ox 96 09/03/18 06:49 O2 Oxygen Delivery Method Room Air Constitutional: Present: Alert, Oriented x3, Cooperative ENT Exam: Present: hearing grossly normal Eye Exam: bilateral eye: normal inspection Neck: Present: full range of motion, trachea midline Breasts: Present: Exam deferred Respiratory: Present: lungs clear, normal breath sounds Cardiovascular/Chest: Present: regular rate, rhythm Abdomen: Present: soft, nontender, no rebound tenderness /Rectal: Present: Exam deferred Extremity: Present: normal range of motion Skin Exam: Present: normal color Neurologic: Present: vp digital marketing social media and crm II-XII nml as tested Appearance: Present: appropriate appearance, appropriate insight Eye contact: Present: cooperative, good eye contact Thoughts: Present: normal thought pattern - Results and Findings: Lab/Microbiology results last 24 hrs: Abnormal/Pending Laboratory Last 24 HRS 09/02/18 09/02/18 09/02/18 18:10 16:58 16:58 MCH 31.5 H Lymphocytes % 17.9 L Monocytes % 10.2 H Lymphocytes # 1.18 L BUN/Creatinine Ratio 25.3 H Random Glucose 134 H Lipase 67 L Urine Protein 15 H Ur Epithelial Cells 5-10 H Urine Bacteria 2+ H Culture 09/02/18 18:10 Urine Culture - Preliminary Urine,Clean Catch No Growth - Assessments/Findings (1) Small bowel obstruction Problem: Acute (2) History of exploratory laparotomy Problem: Acute Plan - Plan Plan: We will continue with conservative management with NG tube and IV fluids. She has a history of exploratory laparotomy at the age of 28, small bowel obstruction is likely due to adhesions. She is slowly improving. She feels better but has not had any flatus or BM. Chloraseptic spray for sore throat.
--- NOTE | 2018-09-03 09:01 | HP ---
Chief Complaint - Chief Complaint Date of Service: 09/03/18 Time of Service: 09:01 Chief Complaint: abdominal pain History of Present Illness: Ms. Ashraf is an 78-year-old pleasant female who came to the hospital last night for abdominal pain, nausea/vomiting. Patient states that started roughly 24 hours and then progressed they worsen so she came to the hospital. Patient states that she has a history of small bowel obstruction in the past requiring surgery where she had a large section of her colon removed at that time. She has not had any issues since then, this happened roughly 50 years ago. Patient states that she had a bowel movement with the last 24 hours. Patient states she does not feel like she is passing gas at this time. NG tube was placed and she was started on low intermittent suction. Dr. Castillo was consulted who is also following the patient. Conservative measures were decided upon at this time. Lab work obtained in the ER showed her to have a normal white count with no shift. Her came panel was within normal limits, mildly elevated glucose. UA was normal aside from some urine bacteria. She had a low lipase. Her vital signs been stable since being to the floor. Medical History (Updated 09/03/18 @ 07:56 by Gricelda Castillo DO) 3rd-5th R metatarsal fracture w/ pins Asthma Hypothyroid Left TKA 2003 Left hand fracture Right TKA 2008 Right carpal tunnel release Uterine cancer - w/ total hysterectomy Surgical History: Surgical History (Updated 09/03/18 @ 07:56 by Gricelda Castillo DO) History of back surgery 06/2018 Status post reverse total arthroplasty of left shoulder Social History: Patient Lives/Resources Home Utilized Occupation retired Preferred Language [place] Do you have any holiness or Yes: First Mormon cultural preference? Smoking Status Never smoker Have you smoked in the past 12 No months Do you dip or chew tobacco No Abuse History No History of abuse Psych History No pertinent hx Alcohol Use sober Drug Use none No Social History Section defined Review Of Systems (GEN) - Review of Systems Generalized/Overall Review: Absent: Weakness, Chills, Fever, Fatigue EENTM: Present: No Symptoms Reported Respiratory: Absent: Cough, Shortness of Breath Cardiac: Absent: Chest Pain, Edema Abdominal: Present: Nausea, Vomiting, Abdominal Pain, Constipation Genitourinary: Present: No Symptoms Reported Musculoskeletal: Present: No Symptoms Reported Neurological: Present: No Symptoms Reported Skin: Present: No Symptoms Reported Endocrine: Present: No Symptoms Reported Immunizations: IMMUNIZATION HX Immunizations Up to Date Yes History of Influenza Vaccine Yes Hx Pneumococcal Vaccination Yes Allergies/Adverse Reactions: Allergies Allergy/AdvReac Type Severity Reaction Status Date / Time gabapentin AdvReac Intermediate Muscle Pain Verified 09/02/18 23:00 benzonatate [From Tessalon] AdvReac Mild GI UPSET Verified 09/02/18 16:19 diclofenac AdvReac Mild GI UPSET Verified 09/02/18 16:19 ibuprofen [From Motrin] AdvReac Mild GI UPSET Verified 09/02/18 16:19 Home Medications: HOME MEDICATIONS Albuterol Sulfate 2.5 mg IH QID PRN 03/11/15 [Last Taken Unknown] Carvedilol [Coreg] 25 mg PO BID 03/11/15 [Last Taken 09/02/18 08:00] Levothyroxine Sodium [Synthroid] 12.5 mcg PO DAILY 03/11/15 [Last Taken 09/02/18 08:00] Acetaminophen [Tylenol] 650 mg PO HS PRN 06/05/16 [Last Taken Unknown] Cholecalciferol (Vitamin D3) [Vitamin D3] 1,000 unit PO DAILY 06/05/16 [Last Taken 08/31/18 21:00] Cyanocobalamin/Folic Acid [Foltrate Tablet] 1 each PO DAILY 06/05/16 [Last Taken 09/01/18 08:00] Ferrous Sulfate [Iron] 325 mg PO DAILY 06/05/16 [Last Taken 08/31/18 08:00] Folic Acid 0.8 mg PO DAILY 06/05/16 [Last Taken 09/01/18 08:00] Gluc Alegre/MSM/Magnesium/Vit C [Glucosamine Complex-MSM Cap] 1 each PO BID 06/05/16 [Last Taken 08/31/18 08:00] Loratadine [Claritin] 10 mg PO DAILY 06/05/16 [Last Taken 09/02/18 08:00] Magnesium 250 mg PO DAILY 06/05/16 [Last Taken 08/31/18 21:00] Multivitamins [Multivitamin Paige] 1 cap PO DAILY 06/05/16 [Last Taken 09/01/18 08:00] Aspirin [Aspirin Chewable] 81 mg PO DAILY 01/11/17 [Last Taken 09/02/18 08:00] Calcium Citrate/Vitamin D2 [Edenilson-Citrate Plus Vitamin D Tab] 1 ea PO DAILY 09/02/18 [Last Taken 08/31/18 21:00] HYDROcodone/ACETAMINOPHEN [Hydrocodon-Acetaminophen 5-325] 1 ea PO HS 09/02/18 [Last Taken 09/01/18 22:00] Meloxicam [Mobic] 15 mg PO BID 09/02/18 [Last Taken 09/01/18 08:00] Oxybutynin Chloride [Ditropan] 5 mg PO BID 09/02/18 [Last Taken 09/01/18 08:00] Exam - Exam Vital Signs: Vital Signs - Last Taken Temp 36.6 C 09/03/18 06:49 Pulse 56 L 09/03/18 06:49 Resp 18 09/03/18 06:49 BP 111/63 09/03/18 06:49 Pulse Ox 96 09/03/18 06:49 Constitutional: Present: Alert, Oriented x3 ENT Exam: Present: hearing grossly normal. Absent: nasal congestion, nasal drainage Eye Exam: bilateral eye: normal inspection Neck: Present: non-tender, supple Respiratory: Present: lungs clear, normal breath sounds Cardiovascular/Chest: Present: regular rate, rhythm, no murmur Abdomen: Present: soft, tender - Minimal, diffuse, high pitched bowel sounds Skin Exam: Present: normal color, warm/dry Lymphatic: Present: no adenopathy Appearance: Present: appropriate appearance, appropriate insight Eye contact: Present: cooperative, good eye contact Thoughts: Present: normal thought pattern, normal mood /affect Diagnostic Studies: Abnormal Lab Results 09/02/18 09/02/18 09/02/18 Range/Units 16:58 16:58 18:10 MCH 31.5 H (27-31) pg Lymphocytes % 17.9 L (20-51) % Monocytes % 10.2 H (0.0-9) % Lymphocytes # 1.18 L (1.5-3.5) k/mm3 BUN/Creatinine Ratio 25.3 H (9.0-21.6) Random Glucose 134 H (70-110) mg/dL Lipase 67 L (73-393) U/L Urine Protein 15 H (NEGATIVE) mg/dL Ur Epithelial Cells 5-10 H (0-5) /hpf Urine Bacteria 2+ H (NONE) Microbiology 09/02/18 18:10 Urine Culture - Preliminary Urine,Clean Catch No Growth Laboratory Results WBC 6.6 K/mm3 (4.0-10.5) 09/02/18 16:58 RBC 4.32 M/mm3 (4.2-5.4) 09/02/18 16:58 Hgb 13.6 gm/dL (12.5-16.0) 09/02/18 16:58 Hct 40.9 % (37.0-47.0) 09/02/18 16:58 MCV 94.7 fl (78-100) 09/02/18 16:58 MCH 31.5 pg (27-31) H 09/02/18 16:58 MCHC 33.3 g/dl (32-36) 09/02/18 16:58 RDW 12.9 % (11.5-14.0) 09/02/18 16:58 Plt Count 243 K/mm3 (150-450) 09/02/18 16:58 MPV 10.2 fl (8-12.5) 09/02/18 16:58 Immature Gran % (Auto) 0.20 % (0.001-0.429) 09/02/18 16:58 Immature Gran # (Auto) 0.01 K/mm3 (0.000-0.0310) 09/02/18 16:58 71.1 % (42-75.0) 09/02/18 16:58 17.9 % (20-51) L 09/02/18 16:58 10.2 % (0.0-9) H 09/02/18 16:58 0.3 % (0.0-3.0) 09/02/18 16:58 0.3 % (0.0-1.0) 09/02/18 16:58 Nucleated RBC % 0.0 k/mm3 (0-1) 09/02/18 16:58 4.7 K/mm3 (1.3-6.0) 09/02/18 16:58 1.18 k/mm3 (1.5-3.5) L 09/02/18 16:58 0.7 k/mm3 (0.0-1.0) 09/02/18 16:58 0.0 k/mm3 (0.0-0.7) 09/02/18 16:58 Absolute Basophils 0.0 k/mm3 (0.0-0.1) 09/02/18 16:58 Sodium 136 mmol/L (132-142) 09/02/18 16:58 137 mmol/L (130-142) 09/02/18 16:58 Potassium 3.8 mmol/L (3.4-4.6) 09/02/18 16:58 Chloride 99 mmol/L (97-106) 09/02/18 16:58 Carbon Dioxide 28.2 mmol/L (24-32.6) 09/02/18 16:58 12.6 mmol/L (6.8-13.8) 09/02/18 16:58 BUN 21 mg/dL (3-23) 09/02/18 16:58 0.83 mg/dL (0.4-1.4) 09/02/18 16:58 Est GFR (Non-Af Amer) 70 mL/min (60-130) 09/02/18 16:58 25.3 (9.0-21.6) H 09/02/18 16:58 134 mg/dL (70-110) H 09/02/18 16:58 Calcium 9.8 mg/dL (7.9-10.9) 09/02/18 16:58 Calcium Adj for Albumin 9.6 mg/dL (8.4-10.2) 09/02/18 16:58 0.9 mg/dL (0.0-1.1) 09/02/18 16:58 AST 23 U/L (0-48) 09/02/18 16:58 ALT 21 U/L (19-67) 09/02/18 16:58 66 U/L (50-170) 09/02/18 16:58 7.8 gm/dL (6.2-8.2) 09/02/18 16:58 3.9 gm/dl (3.4-5.0) 09/02/18 16:58 Amylase 30 U/L (25-115) 09/02/18 16:58 67 U/L (73-393) L 09/02/18 16:58 Dark yellow 09/02/18 18:10 Slightly cloudy (CLEAR) 09/02/18 18:10 5.5 pH (5.0-7.0) 09/02/18 18:10 Ur Specific [place] >=1.030 SP.GR. (1.005-1.010) 09/02/18 18:10 15 mg/dL (NEGATIVE) H 09/02/18 18:10 Negative mg/dL (NEGATIVE) 09/02/18 18:10 Negative mg/dL (NEGATIVE) 09/02/18 18:10 Negative /ul (NEGATIVE) 09/02/18 18:10 Negative (NEGATIVE) 09/02/18 18:10 Negative mg/dl (NEGATIVE) 09/02/18 18:10 Prot Sulfosalicylic Acd Negative mg/dL (0) 09/02/18 18:10 Normal EU/dl (NORMAL) 09/02/18 18:10 Ur Leukocyte Esterase Negative /ul (NEGATIVE) 09/02/18 18:10 None seen /hpf (0-5) 09/02/18 18:10 None seen /hpf (0-5) 09/02/18 18:10 Ur Epithelial Cells 5-10 /hpf (0-5) H 09/02/18 18:10 2+ (NONE) H 09/02/18 18:10 Hyaline Casts Trace /LPF (NONE) 09/02/18 18:10 No culture indicated 09/02/18 18:10 Assessment/Plan - Narrative Narrative: Small bowel obstructionpatient currently feeling better after having the NG tube placed and sit to low intermittent suction. 300 cc of nasogastric fluid removed up-to-date. General surgery has been consulted and is following the case, conservative treatment only at this time. Patient currently n.p.o. Will allow ice chips and Chloraseptic throat spray as needed. Morphine 2 mg every 2 hours as needed ordered, will monitor patient's pain but currently feeling well. Hypertension well-controlled. Holding chronic medications at this time, will provide IV antihypertensives if needed but hopefully this resolves soon and we will not require those. Patient currently n.p.o., SCDs for DVT prophylaxis. Chronic medications being held. Nurses will call with any questions or concerns. - Assessment/Plan (1) Small bowel obstruction Problem: Acute (2) History of exploratory laparotomy Problem: Acute (3) Hypertension Problem: Acute Qualifiers: Hypertension type: essential hypertension Qualified Code(s): I10 - Essential (primary) hypertension
[2018-09-04] MEDS: MORPHINE SULFATE 2 MG/ML DISP.SYRIN IV PRN (01:38)
[2018-09-04] MEDS: NORMAL SALINE 1,000 ML IV PRN (04:27)
[2018-09-04] MEDS: PHENOL 180 SPRAY BTL MM PRN (04:42)
--- NOTE | 2018-09-04 07:53 | PN ---
Dictated Progress Note - Date and Time Seen: Date: 09/04/18 Time: 07:52 - Progress Note Narrative: feeling much better. no abd pain. having flatus and two bm. no n/v. Vital Signs - Last Taken Temp 37.0 C 09/04/18 02:00 Pulse 76 09/04/18 02:00 Resp 18 09/04/18 02:00 BP 144/70 09/04/18 02:00 Pulse Ox 93 09/04/18 02:00 Culture 09/02/18 18:10 Urine Culture - Preliminary Urine,Clean Catch Gram Negative Bacilli NAD non labored abd soft, non distended, non tender Imp: resolving SBO Plan: clamp ng and dc in 4 hours if no n/v clears
[2018-09-04] MEDS ORDERED: CARVEDILOL 25 MG TABLET PO SCH (18:15)
[2018-09-04 18:51] VITALS: BP 157/78
--- NOTE | 2018-09-04 19:01 | DS ---
(1) Small bowel obstruction Problem: Resolved (2) History of exploratory laparotomy Problem: Chronic (3) Hypertension Problem: Chronic Qualifiers: Hypertension type: essential hypertension Qualified Code(s): I10 - Essential (primary) hypertension Description of Stay: Ms. Ashraf is a 78-year-old female who was admitted to the hospital for small bowel obstruction. General surgery was consulted who determined conservative measures were needed only. Patient had NG tube placed, low intermittent suction was started and she did well with this. 36 hours after admission she had 2 bowel movements, her abdominal pain had resolved. NG tube was clamped and she had a p.o. trial which she tolerated. On the day of discharge she was completely pain-free, passing gas, had had 3 bowel movements while being here and overall was feeling much better. Her vital signs were stable and she was afebrile. Of note her blood pressure was mildly elevated on the day of discharge due to patient unable to take her oral hypertensive medications but this returned to a much more tolerable reading at 157/71 after being restarted on her Coreg. Patient again felt fine and was ready to go home. No changes were made to her chronic medications and patient was advised to follow-up with her PCP in 1 week. Procedures Performed: none Results and Findings: Pending Mircobiology Results 09/02/18 18:10 Urine,Clean Catch Urine Culture - Preliminary Gram Negative Bacilli Lab Pending Results 09/02/18 16:58: WBC 6.6, RBC 4.32, Hgb 13.6, Hct 40.9, MCV 94.7, MCH 31.5 H, MCHC 33.3, RDW 12.9, Plt Count 243, MPV 10.2, Immature Gran % (Auto) 0.20, Immature Gran # (Auto) 0.01, Neutrophils % 71.1, Lymphocytes % 17.9 L, Monocytes % 10.2 H, Eosinophils % 0.3, Basophils % 0.3, Nucleated RBC % 0.0, Neutrophils # 4.7, Lymphocytes # 1.18 L, Monocytes # 0.7, Eosinophils # 0.0, Absolute Basophils 0.0 09/02/18 16:58: Sodium 136, Plasma Sodium 137, Potassium 3.8, Chloride 99, Carbon Dioxide 28.2, Anion Gap 12.6, BUN 21, Creatinine 0.83, Est GFR (Non-Af Amer) 70, BUN/Creatinine Ratio 25.3 H, Random Glucose 134 H, Calcium 9.8, Calcium Adj for Albumin 9.6, Total Bilirubin 0.9, AST 23, ALT 21, Alkaline Phosphatase 66, Total Protein 7.8, Albumin 3.9, Amylase 30, Lipase 67 L 09/02/18 18:10: Urine Color Dark yellow, Urine Appearance Slightly cloudy, Urine pH 5.5, Ur Specific [place] >=1.030, Urine Protein 15 H, Urine Glucose (UA) Negative, Urine Ketones Negative, Urine Blood Negative, Urine Nitrate Negative, Urine Bilirubin Negative, Prot Sulfosalicylic Acd Negative, Urine Urobilinogen Normal, Ur Leukocyte Esterase Negative, Urine RBC None seen, Urine WBC None seen, Ur Epithelial Cells 5-10 H, Urine Bacteria 2+ H, Hyaline Casts Trace, Urine Culture Comments No culture indicated Discharge Location: Home Disposition: Home self-care Condition: Stable Discharge Activity: Activity as tolerated Discharge Diet: Consistent carbs Referrals: Amy Dahl, [facility] [Primary Care Provider] - One Week Complete Home Medications List: Complete Home Medication List: Albuterol Sulfate 2.5 mg IH QID PRN 03/11/15 Carvedilol [Coreg] 25 mg PO BID 03/11/15 Levothyroxine Sodium [Synthroid] 12.5 mcg PO DAILY 03/11/15 Acetaminophen [Tylenol] 650 mg PO HS PRN 06/05/16 Cholecalciferol (Vitamin D3) [Vitamin D3] 1,000 unit PO DAILY 06/05/16 Cyanocobalamin/Folic Acid [Foltrate Tablet] 1 each PO DAILY 06/05/16 Ferrous Sulfate [Iron] 325 mg PO DAILY 06/05/16 Folic Acid 0.8 mg PO DAILY 06/05/16 Gluc Alegre/MSM/Magnesium/Vit C [Glucosamine Complex-MSM Cap] 1 each PO BID 06/05/16 Loratadine [Claritin] 10 mg PO DAILY 06/05/16 Magnesium 250 mg PO DAILY 06/05/16 Multivitamins [Multivitamin Paige] 1 cap PO DAILY 06/05/16 Aspirin [Aspirin Chewable] 81 mg PO DAILY 01/11/17 Calcium Citrate/Vitamin D2 [Edenilson-Citrate Plus Vitamin D Tab] 1 ea PO DAILY 09/02/18 HYDROcodone/ACETAMINOPHEN [Hydrocodone-Acetamin 5-325 mg] 1 ea PO HS 09/02/18 Meloxicam [Mobic] 15 mg PO BID 09/02/18 Oxybutynin Chloride [Ditropan] 5 mg PO BID 09/02/18
[2018-09-05] MEDS ORDERED: CARVEDILOL 25 MG TABLET PO SCH (09:00)
== END 2018-09-04 19:15 | disposition home or self-care (01) | DRG 390 ==
LOC: ER 16:07 → MS 21:00
PROVIDERS: ADMIT Family Medicine; ATTEND Family Medicine
CPT/HCPCS: 36415; 71010; 71045; 74019; 74020; 74177; 80053; 81001; 82150; 83690; 85025; 87086; 96374; 96376; 99285; Q9967